=== PATIENT | male | born 1950 | race Caucasian/White ===

== ENCOUNTER → 2019-08-18 | Outpatient (CLI) | payer MEDICARE, OTHER | LOC: M.MRI 07:04 | DX: S83.241A Other tear of medial meniscus, current injury, right knee, initial encounter (principal); M17.11 Unilateral primary osteoarthritis, right knee; X58.XXXA Exposure to other specified factors, initial encounter; Y93.9 Activity, unspecified; Y92.89 Other specified places as the place of occurrence of the external cause; Y99.8 Other external cause status ==

== ENCOUNTER 2019-09-08 07:05 | Inpatient (IN) | payer MEDICARE, OTHER ==
[2019-08-31 11:39] LABS: HEMATOCRIT 44.5 % (42.0-52.0); HEMOGLOBIN 15.4 gm/dL (14.0-18.0); MCH 32.6 pg (26.0-34.0); MCHC 34.7 g/dL (28.0-37.0); MPV 6.9 fl. (7.2-11.1); RBC 4.74 mil/uL (4.50-6.00); RDW-CV 13.3 % (10.5-14.5); WBC 6.3 thou/uL (4.0-11.0)
[2019-08-31 11:41] LABS: URINE BILIRUBIN NEGATIVE (Negative); URINE BLOOD TRACE (Negative); URINE CLARITY CLEAR; URINE COLOR YELLOW; URINE GLUCOSE-RANDOM NEGATIVE (Negative); URINE KETONES NEGATIVE (Negative); URINE LEUKOCYTES-REFLEX NEGATIVE (Negative); URINE NITRITE-REFLEX NEGATIVE (Negative); URINE PROTEIN NEGATIVE (Negative); URINE SPECIFIC GRAVITY 1.015 (1.005-1.030); URINE UROBILINOGEN 0.2 E.U./dl (0.2-1.0)
[2019-08-31 11:46] LABS: PROTIME 10.4 Seconds (9.20-11.50)
[2019-08-31 11:57] LABS: ALBUMIN 4.2 g/dL (3.4-5.0); CALCIUM 8.8 mg/dL (8.5-10.1); CREATININE 1.2 mg/dL (0.6-1.3); POTASSIUM 4.5 mmol/L (3.5-5.1); TOTAL BILIRUBIN 0.6 mg/dL (<0.1-1.0)
--- NOTE | 2019-08-31 15:51 | EKG ---
[place] [address] ELECTROCARDIOGRAM REPORT Name: JOHN CAVAZOS Room: [facility]#: [id number] Admission: Attend Phys: Supa Del Rosario, Discharge: Date of : 48 Date of Service: 08/31/197 Report #: [id number] THIS REPORT FOR: //name// [facility] Test Date: 2019-08-31 Test Time: 12:17:01 Pat Name: JOHN CAVAZOS Department: Room: Gender: Waiter/Waitress Economy Class: : 1950 Requested By: Supa Del Rosario Order Number: [id number] Conrado MD: Monty Brady Measurements Intervals [place] Rate: 58 P: 13 CT: 197 QRS: -21 QRSD: 91 T: 18 QT: 418 QTc: 411 Interpretive Statements Sinus rhythm Borderline left axis deviation No previous ECG available for comparison Electronically Signed On 08-31-2019 15:49:31 CDT by Monty Brady [email or web address] <ELECTRONICALLY SIGNED> By: Monty Brady MD, [facility] 08/31/19 1549 1217 1217 Monty Brady MD, FACC /EPI
[~2019-09-08] VITALS: Ht 185.4 cm; Wt 104.3 kg
[~2019-09-08 07:05] MED LIST: ASPIR 8181 M1 PO; DAILY MULTIPLE1 EACH PO; FISH OIL 500 M1 EAC2 PO; FLOMAX0.4 MG PO; GABAPENTIN600 M1 PO; MAGNESIUM500 MG PO; TYLENOL EXTRA500 MG PO; ZETIA10 MG PO; ZOCOR40 MG PO
[2019-09-08] MEDS ORDERED: BILBERRY100 MG PO (08:40)
[2019-09-08 08:45] VITALS: BP 119/76
[2019-09-08 14:00] VITALS: BP 111/64
[2019-09-08 14:24] VITALS: BP 111/64
--- NOTE | 2019-09-08 16:18 | NUR ---
PT ADMITTED TO ROOM 105 AROUND 1400 THIS AFTERNOON POST RT TKA. PT RATES PAIN 4/10 AND STATES HE DOESNT NEED ANYTHING FOR PAIN AT THIS TIME. POLAR CARE IN PLACE. PT UP TO CHAIR AT THIS TIME. MINIMAL SBA WITH WALKER AND GAIT BELT FOR TRANSFER. NO OTHER CONCERNS AT THIS TIME. CLWR. WCTM.
[2019-09-08 16:20] VITALS: BP 109/64
[2019-09-08 20:30] VITALS: BP 114/62
[2019-09-09] VITALS: BP 91/53
[2019-09-09 03:50] LABS: HEMATOCRIT 38.3 % (42.0-52.0); HEMOGLOBIN 13.1 gm/dL (14.0-18.0)
[2019-09-09 04:00] VITALS: BP 99/52
--- NOTE | 2019-09-09 04:37 | NUR ---
PATIENT HAS REMAINED ALERT AND ORIENTED X 4 THROUGHOUT THE SHIFT AND RESTING QUIETLY ON HOURLY ROUNDS. HAS BEEN UP OUT OF BED WITH WALKER , GAIT BELT AND CGA. CPM EVENING HOURS TOLERATED WELL. MEDICATED X 1 THIS SHIFT OF THIS WRITING TO GOOD EFFECT. DRESSING RIGHT KNEE CLEAN AND DRY. HEMOVAC PRESENT WITH MOD OUTPUT. ROOM AIR. VITAL SIGNS STABLE/SOFT BP WITH CONTINUOUS OXIMITRY UNTIL AM. PASSING GAS. ADEQUATE VOIDS. NO NAUSEA. CONTINUE TO MONITOR.
--- NOTE | 2019-09-09 06:16 | NUR ---
HEMOVAC DRAIN DISCONTUED PARTIALLY DURING AMBULATION TO BR. REMOVAL COMPLETED ONCE BACK TO BED WITH PRESSURE DRESSING OVER SITE AND [place] WRAP RIGHT KNEE TO REPLACE BLOODY ONE.
[2019-09-09 09:24] VITALS: BP 102/58
[2019-09-09] MEDS ORDERED: XARELTO10 MG PO (11:17)
[2019-09-09] MEDS ORDERED: HYDROCODON-ACE1 EAC7 PO (11:17)
[2019-09-09 11:36] VITALS: BP 102/58
[2019-09-09] MEDS ORDERED: PERCOCET 5-3251 EACH PO (11:51)
--- NOTE | 2019-09-09 12:06 | NUR ---
SPOKE WITH PT. HE IS READY TO DISCHARGE TODAY. THERAPY HAS CLEARED HIM. HIS IS ON THE WAY TO PICK HIM UP. HE HAS A WALKER AND CANE AT HOME. IS NORMALLY INDEPENDT. E-SCRIPTED ELIQUIS PRESCRIPTION TO PT.S PHARMACY [facility] IN [place]. CM CALLED FOR COPAY. IT IS $33 AND PT.INFORMED. HE WOULD LIKE HH FIRST AND THEN OUTPT. HE CANT REMEMBER NAME OF AGENCY USED. WILL CHECK WITH WHEN SHE GETS HERE. HAS CPM AND GRICELDA GANN.
--- NOTE | 2019-09-09 12:30 | NUR ---
RECIEVED O.T. ORDERS. WILL DEFER TO P.T. AT THIS TIME. PLEASE ORDER FURTHER O.T. SERVICES IF NEEDED.
--- NOTE | 2019-09-16 12:26 | OP ---
[address] [address] OPERATIVE REPORT Name: JOHN CAVAZOS Room: [address] IN [facility]#: [id number] Admission: 09/08/19 Attend Phys: Korina Marks Discharge: 09/09/19 Date of : 48 Report #: [id number] THIS REPORT FOR: //name// cc: Rey Luna MD, Usman MD ~ THIS REPORT FOR: //name// CC: Supa Serna DATE OF SERVICE: 09/08/2019 PREOPERATIVE DIAGNOSIS: Right knee osteoarthritis. POSTOPERATIVE DIAGNOSIS: Right knee osteoarthritis. PROCEDURE: Right total knee arthroplasty. SURGEON: Supa Del Rosario II, DO DISASTER RECOVERY ANALYST: ELLA June ANESTHESIA: General endotracheal. ESTIMATED BLOOD LOSS: 50 mL. ANTIBIOTICS: Ancef preoperatively. DRAINS: Medium Hemovac. COMPLICATIONS: None. CONDITION OF THE PATIENT: Stable to recovery room. IMPLANTS: Listed in operative record and progress note. BRIEF HISTORY: The patient was seen in the preoperative area. Preoperative H and P was performed. Site was marked, questions were answered. Risks and benefits were discussed with the patient in detail about surgery. The patient wished to proceed, assuming all risks. DESCRIPTION OF PROCEDURE: The patient was taken to the operative suite and placed supine on the operating table, given appropriate anesthesia. A well-padded tourniquet was applied to upper thigh, which was inflated to 300 mmHg after gravity exsanguination. The operative [place] [address] OPERATIVE REPORT Name: JOHN CAVAZOS Room: [address] IN [facility].#: [id number] Admission: 09/08/19 Attend Phys: Korina Marks Discharge: 09/09/19 Date of : 48 Report #: [id number] draped. Surgery began by midline incision. This was carried down to the subcutaneous tissues. A medial parapatellar arthrotomy was performed and carried down to bone. The patella was then everted and excess soft tissue was removed from around the femur. Femoral cutting block was then applied, checked with a drop [place]ol[place] for rotational alignment, pinned in appropriate position and appropriate cuts were made. A 4-in-1 cutting block was then applied, checked for rotational alignment, pinned in appropriate position and appropriate cuts were made. The tibia was then exposed. Excess meniscus was removed. Retractor was placed on collateral ligaments. The tibial cutting block was then applied, pinned in appropriate position, checked with drop [place]ol[place] for rotational alignment and slope and appropriate cut was made. The tibial bone was removed. The tibial base plate was applied, checked for rotational alignment with the drop carol[place] and pinned in appropriate position. The femur was then applied and box cut was reamed. This was then trialed with appropriate spacer, which showed excellent fit and fill and excellent stability of the knee through all range of motion. The patella was reamed in appropriate fashion and sized to appropriate size. Three peg holes were drilled and it was then trialed and showed excellent flexion, extension, excellent tracking of the patella within the groove. These trials were removed. The tibia was punched in appropriate fashion. Bone ends were cleansed with Pulsavac irrigation and cement was mixed and applied to final implants. These were then malleted into position and held the knee in extension and compressed to allow cement to cure. After it cured, excess cement was removed using [place] and osteotome. Wound was then copiously irrigated and the final spacer was malleted into position. The tourniquet was deflated. Hemostasis was obtained with electrocautery. Pain cocktail was injected. PRP gel was sprayed throughout the internal aspects of the knee. Medium Hemovac drain was applied. The capsule was closed with #2 FiberWire and 1-0 Vicryl in [id number] fashion. Skin was closed with 2-0 Vicryl and running 3-0 Monocryl. Dermabond and sterile dressing applied. Juan wrap and PolarCare applied. The patient transported to recovery room in stable condition. Counts were correct throughout the procedure. <ELECTRONICALLY SIGNED> By: Supa Del Rosario II, DO 09/16/19 1226 [id number] Del Rosario II, DO /nt
== END 2019-09-09 13:57 | disposition home health service (06) | DRG 470 ==
LOC: M.PRE 07:05 → M.ORTHSURG 08:22 → M.TBA 08:22 → M.PRE 12:23 → M.ORTHSURG 14:09
PROVIDERS: Orthopaedic Surgery; ADMIT Internal Medicine; ATTEND Internal Medicine
PROC: 0SRC0J9 Replacement of Right Knee Joint with Synthetic Substitute, Cemented, Open Approach (ICD-10-PCS; principal; 2019-09-08)
DX: M17.11 Unilateral primary osteoarthritis, right knee (principal); E78.00 Pure hypercholesterolemia, unspecified; E78.5 Hyperlipidemia, unspecified; Z79.899 Other long term (current) drug therapy; Z79.82 Long term (current) use of aspirin; Z03.818 Encounter for observation for suspected exposure to other biological agents ruled out